=== PATIENT | female | born 1950 | race Caucasian/White ===

== ENCOUNTER 2019-07-15 07:57 | Emergency (ER) | payer MEDICARE, BC, OTHER ==
[2019-07-15 08:18] VITALS: BP 154/81
[2019-07-15] MEDS ORDERED: Lidocaine 1% MPF ** 5 ML VIAL INJ ONE (08:30)
--- NOTE | 2019-07-15 08:50 | UC ---
Skin Complaint HPI - HPI Summary HPI Summary: Pt presents with c/o tender "lump" on palm of left hand that began on 07/13/19. Pt states that she noticed her hand felt a little tender on 07/12/19 and noticed a small amount of pus under skin. Pt has hx of laceration to left hand and has scar tissue where tender "lump" developed. - History of Current Complaint Chief Complaint: UCSkin Time Seen by Provider: 07/15/19 08:20 Stated Complaint: LEFT HAND SKIN CONCERN Hx Obtained From: Patient ?: No Onset/Duration: Gradual Onset, Lasting Days, Still Present, Worse Since - from initial onset Skin Exposure Onset/Duration: Days Ago Onset Severity: Mild Current Severity: Moderate Pain Intensity: 8 Location: Discrete, Hand (Left) Character: Swelling, Pain, Raised, Painful Aggravating Factor(s): Touch Alleviating Factor(s): Nothing Associated Signs & Symptoms: Positive: Bruising, Tenderness - Allergy/Home Medications Allergies/Adverse Reactions: Allergies Allergy/AdvReac Type Severity Reaction Status Date / Time No Known Allergies Allergy Verified 07/15/19 08:12 Home Medications: Home Medications Aspirin 81 mg CHEW TAB* 81 mg PO DAILY 07/15/19 [History Confirmed 07/15/19] Calcium Carbonate [Calcium] 500 mg PO EVERY OTHER DAY 07/15/19 [History Confirmed 07/15/19] Hydrochlorothiazide TAB* [Hydrodiuril TAB*] 25 mg PO DAILY 07/15/19 [History Confirmed 07/15/19] LevoCETirizine TAB (NF) [Xyzal TAB (NF)] 5 mg PO DAILY 07/15/19 [History Confirmed 07/15/19] Losartan TAB* [Cozaar TAB*] 25 mg PO DAILY 07/15/19 [History Confirmed 07/15/19] Lovastatin (NF) [Mevacor (NF)] 10 mg PO 1700 07/15/19 [History Confirmed ] Omeprazole CAP (NF) [Prilosec CAP* 20 MG] 20 mg PO DAILY 07/15/19 [History Confirmed 07/15/19] Psyllium GUERA* [Metamucil GUERA*] 1 pkt PO DAILY 07/15/19 [History Confirmed ] Vitamin THERAPEUTIC TAB* [Theragran TAB*] 1 tab PO DAILY 07/15/19 [History Confirmed 07/15/19] metFORMIN* [Glucophage 1000 MG TAB *] 1,000 mg PO DAILY 07/15/19 [History Confirmed 07/15/19] PMH/Surg Hx/FS Hx/Imm Hx Previously Healthy: Yes Endocrine History: Diabetes Cardiovascular History: Cardiac Disease, Hypertension - Surgical History Surgical History: None - Family History Known Family History: Positive: Cardiac Disease - Social History Occupation: Retired Lives: With Family Alcohol Use: 1-2 glasses with dinner Substance Use Type: None Smoking Status (MU): Never Smoked Tobacco Have You Smoked in the Last Year: No Review of Systems All Other Systems Reviewed And Are Negative: Yes Constitutional: Positive: Negative Skin: Positive: Other - tender lump on palm of left hand ~ size of quarter Eyes: Positive: Negative ENT: Positive: Negative Respiratory: Positive: Negative Cardiovascular: Positive: Negative Gastrointestinal: Positive: Negative Genitourinary: Positive: Negative Motor: Positive: Negative Neurovascular: Positive: Negative Musculoskeletal: Positive: Edema - left hand hand midl erytheam and swelling Neurological: Positive: Negative Psychological: Positive: Negative Is Patient Immunocompromised?: No Physical Exam Vital Signs: Initial Vital Signs Temp 98.6 F 07/15/19 08:09 Pulse 92 07/15/19 08:09 Resp 18 07/15/19 08:09 BP 154/81 07/15/19 08:09 Pulse Ox 98 07/15/19 08:09 Course/Dx - Differential Diagnoses - Skin Complaint Differential Diagnoses: Abscess, MRSA - Diagnoses Provider Diagnosis: Abscess, Encounter for incision and drainage procedure Discharge ED - Sign-Out/Discharge Documenting (check all that apply): Patient Departure All imaging exams completed and their final reports reviewed: No Studies - Discharge Plan Condition: Stable Disposition: HOME Prescriptions: Cephalexin CAP* [Keflex 500 CAP*] 500 mg PO QID #40 cap Patient Education Materials: Abscess (ED), Abscess Incision and Drainage (DC) Referrals: Gely Cordova MD [Primary Care Provider] - If Needed - Billing Disposition and Condition Condition: STABLE Disposition: Home - Attestation Statements Provider Attestation: This patient was not seen by me. I was available for consult. Chart reviewed. CANDIDO
== END 2019-07-15 09:14 | disposition home or self-care (01) ==
LOC: UCCORT 07:57
DX: L02.512 Cutaneous abscess of left hand (principal); E11.9 Type 2 diabetes mellitus without complications; I10 Essential (primary) hypertension; Z79.82 Long term (current) use of aspirin; Z79.899 Other long term (current) drug therapy
CPT/HCPCS: 10060; 87070; 87077; 87186; 87205; 99212; G0463